=== PATIENT | female | born 1980 | race Caucasian/White ===

== ENCOUNTER → 2017-03-03 | Outpatient (CLI) | payer OTHER ==
[~2017-03-03] MED LIST: AMBIEN 10MG TAB10 MG PO; AMOXICILLIN AND1 TA1 PO; BACTRIM DS 8001 TA1 PO; BENZONATATE200 MG PO; CALCIUM CARBON600 MG PO; CEPHALEXIN500 MG PO; CIPRO 500MG TA500 MG PO; HYDROCODON-ACETAMINO OR; LEUPROLIDE IM; LISINOPRIL10 MG PO; LORAZEPAM0.5 MG/TAB FT; LOVASTATIN20 MG PO; NAPROSYN 500MG500 MG PO; NAPROSYN500 M1 PO; NORCO 325 MG-51 TAB PO; OPTIMUM VITAMIN1 TAB PO; PERCOCET 5/3251 EACH PO; PREDNISONE 20MG20 MG PO; PREDNISONE50 MG PO; PREMARIN 0.60.625 MG PO; PROZAC 20MG CAP20 MG PO; VITAMIN D1000 IU PO; XANAX 0.25MG0.25 MG PO
[2017-03-03 14:34] LABS: AMPHETAMINES/METAMPHETAMINES NEGATIVE ng/mL (<1000)
== END ==
LOC: LAB 13:45
PROVIDERS: Emergency Medicine
DX: Z79.899 Other long term (current) drug therapy (principal)

== ENCOUNTER → 2017-05-26 | Outpatient (CLI) | payer OTHER ==
[2017-05-26 14:13] LABS: AMPHETAMINES/METAMPHETAMINES NEGATIVE ng/mL (<1000)
[2017-06-01 16:40] LABS: Opiates Negative (Cutoff=100)
== END ==
LOC: LAB 11:31
PROVIDERS: Emergency Medicine
DX: Z79.899 Other long term (current) drug therapy (principal)

== ENCOUNTER → 2017-06-24 | Outpatient (CLI) | payer OTHER ==
[2017-06-24 19:58] LABS: AMPHETAMINES/METAMPHETAMINES NEGATIVE ng/mL (<1000)
== END ==
LOC: LAB 17:34
PROVIDERS: Emergency Medicine
DX: Z79.899 Other long term (current) drug therapy (principal)

== ENCOUNTER 2017-07-17 17:09 | Emergency (ER) | payer OTHER ==
[~2017-07-17] VITALS: Ht 154.9 cm; Wt 83.9 kg
[2017-07-17] MEDS ORDERED: MEDROL 4MG. DOSE4 MG PO (17:36)
[2017-07-17] MEDS ORDERED: TESSALON PERLE100 M1 PO (17:36)
[2017-07-17] MEDS ORDERED: ZITHROMAX Z PA250 MG PO (17:36)
[2017-07-17] MEDS ORDERED: FLONASE 50 MCG16 GM (17:36)
--- NOTE | 2017-07-17 17:36 | Urgent Treatment Center Report ---
History of Present Issue Date/Time Seen by Provider 07/17/17 1731 Visit Reason Pt arrived:Walked Presenting Problem:COUGH, BODY ACHES, SOA, WEAKNESS AND RUNNY NOSE X 3 DAYS Location if Accident: Onset of symptoms date/time:/ or onset unknown for:MEDICAL HX UNKNOWN Have you (or family members/close friends) recently traveled outside the [place]? N If Yes, where/when: Have you had exposure to infectious disease within the past month? TB? Other? Specify: Patient state that she has been having cough and body aches for 3 days. States that she began to have sorethroat and nasal congestion and runny nose. State that when she begans coughing she feels like she cant stop. States that she feels like her sinuses is draining down the back of her throat and causing her to feel bad ALLERGIES Coded Allergies: No Known Allergies (03/08/16) Home Medications Reported Medications Lovastatin 20 MG PO DAILY #30 Zolpidem Tartrate (Ambien 10MG) 20 MG PO QHS Conjugated Estrogens (Premarin 0.625MG) 0.625 MG PO DAILY Lisinopril 10 MG PO DAILY #30 History Medical History General CAD? No Angina: Yes NV: No Hypertension? Yes Hyperlipidemia? Yes CHF? No DVT? No PE? No COPD? No Asthma? Yes Anemia? No GERD? No Gastric ulcers? No GI Bleed? No Hernia? No Thyroid Problems? No Hypothyroidism? No CVA? No Seizures? No Diabetes? No Renal Insuffiency? No UTI? Yes Stones? No BPH? No GB Disease: No Nephritic Syndrome? No Asplenia? No Hepatitis? No Sickle Cell Disease? No Arthritis? No Migraines? No Cataracts? No Glaucoma? No MRSA? No HIV? No TB? No Anxiety? Yes Depression? No Cancer? No More? No Immunization HX DT/Tetanus 5-10 YRS Flu [id number] Pneumonia Received In Past Surgical Hx Previous Surgery?Y DX. 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 Respiratory cough, denies wheezing Physical Exam Vital Signs Vital Signs Date Time Temp Pulse Resp B/P Pulse O2 O2 Flow FiO2 Ox Delivery Rate 07/17 1724 98.3 116 22 145/90 96 General Appearance normal appearance, WD/WN, no apparent distress Ear, Nose, Throat throat red, irritated, drainage noted with tenderness noted over maxillary sinsues Respiratory Status Yes: trachea midline, chest symmetrical, non tender chest. No: respiratory distress. Lung Sounds bilateral: normal breath sounds, lungs clear. 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 No Departure Departure Time of Disposition 1733 Disposition DC Home or Self Care(routine) Clinical Impression Primary Impression: Upper respiratory infection Qualifiers: URI type: unspecified URI Qualified Code: J06.9 - Acute upper respiratory infection, unspecified Condition STABLE Referrals Katherine MANCUSO,Kory Car (Family) Patient Instructions Cough, Sinus Headache, Sinusitis, Sore Throat Additional Instructions * Monitor Temp. Tylenol and/or Ibuprofen as needed. ER if fever is no less than 101 despite alternating Tylenol and Ibuprofen * Encourage fluids, water, Gatorade, powerade, pedialyte if infant/toddler/or child * Warm salt water gargles for throat irritation *Warm fluids *Sore throat lozenges *Sleep elevated *humidifier or vaporizer *Flonase 2 sprays each nostril daily but may take 2-3 days to notice improvement with it Follow up IMMEDIATELY for new or worsening of symptoms OR no noticeable improvement over the next 48-72 hours. 911 immediately for any life threatening symptoms such as chest pain or difficulty breathing Discharge Counseling Counseled pt/family regarding diagnosis, medications/RX, home care, follow up needs Prescriptions Current Visit Scripts Azithromycin (Zithromycin (Z-MENDEZ) 250MG Tab) 250 MG PO DAILY #6 TAB TAKE TWO (2) TABLETS ON DAY 1, THEN ONE (1) TABLET DAY #2 THRU #5 Fluticasone Propionate (Flonase 50 Mcg Nasal [place]) 2 SPRAY NA DAILY #1 BOT Methylprednisolone (Medrol Dose Mendez) 4 MG PO UD #1 MENDEZ TAKE DIRECTED ON PACKAGING Benzonatate (Tessalon Perle) 100 MG PO TID #15 SGL at 7056
[2017-07-17 17:38] VITALS: BP 145/90
== END 2017-07-17 17:39 | disposition home or self-care (01) ==
LOC: UTC 17:09
DX: J06.9 Acute upper respiratory infection, unspecified (principal); J45.909 Unspecified asthma, uncomplicated; I10 Essential (primary) hypertension; F41.9 Anxiety disorder, unspecified

== ENCOUNTER → 2017-07-24 | Outpatient (CLI) | payer OTHER ==
[~2017-07-24] MED LIST changes: +FLONASE 50 MCG16 GM; +MEDROL 4MG. DOSE4 MG PO; +TESSALON PERLE100 M1 PO; +ZITHROMAX Z PA250 MG PO
[2017-07-24 18:24] LABS: AMPHETAMINES/METAMPHETAMINES NEGATIVE ng/mL (<1000)
[2017-08-03 12:37] LABS: Opiates Negative (Cutoff=100)
== END ==
LOC: LAB 16:44
PROVIDERS: Emergency Medicine
DX: Z79.899 Other long term (current) drug therapy (principal)

== ENCOUNTER 2017-09-13 15:12 | Emergency (ER) | payer OTHER ==
[~2017-09-13] VITALS: Ht 154.9 cm; Wt 97.5 kg
--- NOTE | 2017-09-13 15:15 | Emergency Room Report ---
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 Clinical Suspician of Infection? Mental Status: Sepsis Risk: Have you (or family members/close friends) recently traveled outside the [place]? If Yes, where/when: Have you had exposure to infectious disease within the past month? TB? Other? Specify: Source patient, RN notes reviewed Exam Limitations no limitations Comment Pt woke up around 3 AM this morning with nausea and vomiting but no diarrhea. ? some fever and Left shest pain with deep breathing. Cardiac Chest Pain Chest pain indicative of cardiac No ALLERGIES Coded Allergies: No Known Allergies (03/08/16) Home Medications Reported Medications Lovastatin 20 MG PO DAILY #30 Zolpidem Tartrate (Ambien 10MG) 20 MG PO QHS Conjugated Estrogens (Premarin 0.625MG) 0.625 MG PO DAILY Lisinopril 10 MG PO DAILY #30 Bupropion HCl (WELLBUTRIN SR 150MG (generic) TAB) 150 MG PO DAILY History Medical History General CAD? No Angina: Yes [place]: No Hypertension? Yes Hyperlipidemia? Yes CHF? No DVT? No PE? No COPD? No Asthma? Yes Anemia? No GERD? No Gastric ulcers? No GI Bleed? No Hernia? No Thyroid Problems? No Hypothyroidism? No CVA? No Seizures? No Diabetes? No Renal Insuffiency? No End Stage Renal Disease? No UTI? Yes Stones? No BPH? No GB Disease: No Nephritic Syndrome? No Asplenia? No Hepatitis? No Sickle Cell Disease? No Arthritis? No Migraines? No Cataracts? No Glaucoma? No MRSA? No HIV? No TB? No Anxiety? Yes Depression? No Cancer? No More? No Immunization Hx DT/Tetanus 5-10 YRS Flu [id number] Pneumonia Received In Past Surgical Hx Previous Surgery?Y DX. 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 VAG HYST Family History Family Hx Diabetes No CAD No Hypertension No Hyperlipidemia No Cancer No TB No Social History Alcohol Alcohol: No Review of Systems All Other Systems Reviewed and Negative Constitutional see HPI Respiratory see HPI Cardiovascular see HPI Gastrointestinal see HPI Physical Exam Vital Signs Vital Signs Date Time Temp Pulse Resp B/P Pulse O2 O2 Flow FiO2 Ox Delivery Rate 09/13 1827 96 20 113/55 97 09/13 1651 20 09/13 1641 99.1 96 20 118/68 98 09/13 1516 98.1 124 22 125/88 98 General Appearance normal appearance, WD/WN, no apparent distress Respiratory Status No: respiratory distress. 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 No Results/Orders Laboratory Tests 09/13/17 1640: Influenza Type A Ag NOT DETECTED, Influenza Type B Ag NOT DETECTED 09/13/17 1530: Sodium 139, Potassium 3.9, Chloride 103, Carbon Dioxide 26, BUN 13, Creatinine 0.8, Estimated Creat Clear 145, Estimated GFR (MDRD) 80, Glucose 109 H, Calcium 9.2, Total Bilirubin 0.4, AST 18, ALT 18, Alkaline Phosphatase 86, Creatine Kinase 77, CK-MB (CK-2) Rel Index 0.6, CK and CKMB Interp < 0.5, Troponin I < 0.02, Total Protein 7.6, Albumin 3.8, Globulin 3.8 H, Albumin/Globulin Ratio 1.0 L, D-Dimer < 100, WBC 8.2, RBC 4.47, Hgb 12.7, Hct 38.0, MCV 84.9, RDW 13.8 , Plt Count 340, MPV 6.8 L, Gran % 82.1 H, Gran # 6.7, Lymphocytes % 9.5 L, Monocytes % 3.2, Eosinophils % 4.9, Basophils % 0.2, Lymphocytes # 0.8, Monocytes # 0.3, Eosinophils # 0.4, Basophils # 0.0, PUBS MCHC 33.5, MCH 28.4 Current Medication Orders Sig/Fatou Start time Last Medication Dose Route Stop Time Status Admin Prochlorperazine 0 .STK-MED ONE 09/13 1647 DC Edisylate .ROUTE Sodium Chloride 1,000 ML .STK-MED ONE 09/13 1647 DC IV Morphine Sulfate 0 .STK-MED ONE 09/13 1646 DC .ROUTE Morphine Sulfate 4 MG ONCE ONE 09/13 1645 DC 09/13 IV 09/13 1646 1651 Prochlorperazine 5 MG ONCE ONE 09/13 1645 DC 09/13 Edisylate IV 09/13 1646 1651 Sodium Chloride 1,000 ML .Q1H1M 09/13 1645 DC 09/13 IV 09/13 1745 1651 Sodium Chloride 10 ML PRN PRN 09/13 1645 AC IV 09/14 1634 Promethazine HCl 12.5 MG ONCE ONE 09/13 1615 DC 09/13 IV 09/13 1616 1610 Sodium Chloride 25 ML ONCE ONE 09/13 1615 DC 09/13 IV 09/13 1629 1610 Promethazine HCl 0 .STK-MED ONE 09/13 1607 DC .ROUTE Sodium Chloride 25 ML .STK-MED ONE 09/13 1606 DC IV Ondansetron HCl 4 MG ONCE ONE 09/13 1545 DC 09/13 IV 09/13 1546 1546 Sodium Chloride 1,000 ML .Q1H1M 09/13 1545 DC 09/13 IV 09/13 1645 1546 Sodium Chloride 10 ML PRN PRN 09/13 1545 AC IV 09/14 1543 Ondansetron HCl 0 .STK-MED ONE 09/13 1530 DC .ROUTE Sodium Chloride 10 ML PRN PRN 09/13 1530 AC IV 09/14 1528 Sodium Chloride 1,000 ML .STK-MED ONE 09/13 1530 DC IV Orders Procedure Date/time Status D-DIMER 09/13 1850 Complete CULTURE, THROAT 09/13 1640 Active KUB (SINGLE VIEW) 09/13 1635 Active STREP SCREEN THROAT 09/13 1635 Complete INFLUENZA A&B ANTIGENS 09/13 1635 Complete 12 LEAD EKG-BESSON (INITIAL) 09/13 1529 Active ELECTROCARDIOGRAM REQUEST 09/13 1529 Active CHEST(2 VIEWS-NOT PORTABLE) 09/13 1529 Active IV SALINE LOCK 09/13 1529 Active URINALYSIS/COMPLETE 09/13 1529 Active CBC WITH AUTO DIFF 09/13 1529 Complete CARDIAC ENZYMES 09/13 1529 Complete CHEM 12 PROFILE 09/13 1529 Complete Departure Departure Time of Disposition 1952 Disposition DC Home or Self Care(routine) Clinical Impression Primary Impression: Viral gastroenteritis Condition STABLE Patient Instructions DI for Viral Gastroenteritis -- Adult, Viral Gastroenteritis Additional Instructions Stay on clear liquids for the next 24 to 48 hours. Then go to a BRATS diet: Fprwt-Eleo-Notbrdpyva-Soups. Use meds as directed. Discharge Counseling Counseled pt/family regarding diagnosis, test results, medications/RX, home care, follow up needs Prescriptions Current Visit Scripts ONDANSETRON HCL (Zofran 4MG Tab) 4 MG PO Q6HP PRN NAUSEA AND VOMITING #40 TAB Loperamide HCl (Imodium A-D) 2 MG PO DIRECTED #30 CAPSULE Take 2 tabs with first loose BM and then 1 tab after each BM but no more than 6 pills in 1 day ED Critical Care Critical Care No If Critical Care minutes are documented, the time involved in the performance of seperately reportable procedures was not counted toward critical care time documented. I directly delivered medical care to this critically ill and/or injured patient. Timely evaluation and treatment was necessary to address the significant organ system(s) dysfunction present in this patient. at 1957
[2017-09-13] MEDS ORDERED: WELLBUTRIN SR150 MG PO (15:27)
--- OUTSIDE RECORDS SUMMARY | 2017-09-13 15:40 | External Medical Summary Rpt | CCD ---
Author Author [employer] Organization [employer] Address Unknown Phone Unavailable Purpose Continuity of Care Document - through 2016
--- OUTSIDE RECORDS SUMMARY | 2017-09-13 15:40 | External Medical Summary Rpt | CCD ---
Author Author , GRACE EDWARDS Address Unknown Phone [email or web address] Immunization Name Date Rout CVX Reac Dose Comm Prov Is Faci e tion ent ider Refu lity Give sed n Infl 10-0 Intr 150 0.5 Hist GSHA No GSHA uenz 6-20 amus mL oric NE NE a 17 cula al Quad r Info Inj rmat ion - Sour ce Unsp ecif ied
--- OUTSIDE RECORDS SUMMARY | 2017-09-13 15:40 | External Medical Summary Rpt | CCD ---
Author Author , GRACE Organization GRACE Address Unknown Phone [email or web address] Care Team Providers Care Mailing Specialist Name Role Phone Gurvinder Murphy MD, Unavailable Unavailable Gurvinder Rodas Unavailable DANIELA MANCUSO, Ryan Rice III, MD Purpose Continuity of Care Document - 01-17-2012 through 2016 Problems Code Diagnosis DOS Provider Status 466.0 466.0 ACUTE 12-01-2013 [facility] 511.0 511.0 12-01-2013 [place] PLEURISY [facility] W/O [facility] OR TB 493.92 493.92 03-14-2013 [place] ASTHMA, [facility]PEC[facility]IED [facility] , W (ACUTE) EXACERBATIO N M77.50 OTHER ENTHESOPATH Y OF UNSPECIFIED FOOT M79.673 PAIN IN UNSPECIFIED FOOT R00.2 PALPITATION S S83.91XA SPRAIN OF UNSPECIFIED SITE OF RIGHT KNEE, INITIAL ENCOUNTER S93.401A SPRAIN OF UNSPECIFIED LIGAMENT OF RIGHT ANKLE, INIT ENCNTR S93.409A SPRAIN OF UNSP LIGAMENT OF UNSPECIFIED ANKLE, INIT ENCNTR S93.601A UNSPECIFIED SPRAIN OF RIGHT FOOT, INITIAL ENCOUNTER Allergies, Adverse Reactions, Alerts Type Drug Allergy Propensity to adverse reactions to drug Adverse Reaction to Substance Substance Reaction Severity No Known Allergies - Unknown Unknown Nka Ibuprofen NA-NAUSEA/VOMITING Unknown Pentazocine NA-NAUSEA/VOMITING Mild Tramadol NA-NAUSEA/VOMITING Mild Medications Na ND Rx Da Fi Fi Am Da Di Ph RX Ph St me C No te ll ll ou ys ag ar # ys at rm s nt no ma ic us Or Da si cy ia de te s n re d Le 00 02 0 No vo 90 -1 fl 46 3- Lo ox 25 20 ng ac 06 14 er in 1 Ac 50 ti 0M ve G Ta bl et IN 51 02 0 No DO 07 -1 ME 90 3- Lo TH 19 20 ng AC 02 14 er IN 0 Ac 25 ti ve MG CA PS UL E AC 51 02 0 No ET 07 -1 AM 90 3- Lo IN 16 20 ng OP 19 14 er HE 9H N Ac W/ ti CO ve DE IN E #3 TA K Le 00 02 0 No vo 90 -1 fl 46 3- Lo ox 25 20 ng ac 06 14 er in 1 Ac 50 ti 0M ve G Ta bl et AC 51 02 0 No ET 07 -1 AM 90 3- Lo IN 16 20 ng OP 19 14 er HE 9H N Ac W/ ti CO ve DE IN E #3 TA K AM 66 05 0 No OX 68 -2 -C 51 7- Lo LA 00 20 ng V 20 13 er 50 0 0- Ac 12 ti 5 ve MG TA BL ET OK 00 05 0 No ED 05 -2 NI 40 7- Lo SO 01 20 ng NE 82 13 er 0 20 Ac ti MG ve TA BL ET BE 57 05 0 No NZ 66 -2 ON 40 7- Lo AT 13 20 ng AT 38 13 er E 8 10 Ac 0 ti MG ve CA PS UL E Vital Signs 12-01-2013 22:21 Name Value Interpretat Reference Comment ion Range BP 70 mm[Hg] Diastolic BP Systolic 119 mm[Hg] Heart 97 /min Rate/Pulse O2% 98 % Respiratory 20 /min Rate 12-01-2013 21:53 Name Value Interpretat Reference Comment ion Range Body 97.9 [degF] Temperature BP 65 mm[Hg] Diastolic BP Systolic 104 mm[Hg] Heart 101 /min Rate/Pulse O2% 98 % Respiratory 24 /min Rate 03-14-2013 03:10 Name Value Interpretat Reference Comment ion Range BP 87 mm[Hg] Diastolic BP Systolic 124 mm[Hg] Heart 103 /min Rate/Pulse O2% 97 % Respiratory 20 /min Rate 03-14-2013 02:57 Name Value Interpretat Reference Comment ion Range BP 73 mm[Hg] Diastolic BP Systolic 116 mm[Hg] Heart 104 /min Rate/Pulse O2% 98 % Respiratory 20 /min Rate Results Labs Lab Lab Date Result Refere Interp Status Commen Order Detail nces retati t Range on Opiates and Oxycodone(GC/MS),U (07-24-2017 15:15) Opiates Negativ Cutoff= complet 017 e 100 ed 15:15 Comment: Opiate test includes Codeine, Morphine, Hydromorphone, Hydrocodone. Oxymorp --2 Negativ Cutoff= complet mikey 017 e 100 ed 15:15 Comment: Performed at: - [facility] Comment: [address] [facility], [facility], [place] [id number] Comment: Research Anthropologist: Kory Peterson MD, Phone: [phone] Oxycodo 102 2089 Cutoff= complet ne 017 ng/mL 100 ed (GC/MS) 15:15 Oxycodo 10-06-2 Positiv . complet ne 017 e ed 15:15 Oxycodo 10-06-2 Positiv . complet ne/Oxym 017 e ed orph 15:15 Comment: Test includes Oxycodone and Oxymorphone Drugs identified in Urine by Screen method (07-24-2017 15:15) Ampheta 10--2 NEGATIV <1000 complet mine 017 E ed [Presen 15:15 ce] in Urine by Screen method 11-Hydr 2 NEGATIV <50 complet oxy 017 E ed delta-9 15:15 tetrahy drocann abinol [Presen ce] in Unspeci fied specime n Drugs identified in Urine by Screen method (06-24-2017 14:45) Ampheta -06-2 NEGATIV <1000 complet mine 017 E ed [Presen 14:45 ce] in Urine by Screen method 11-Hydr 2 NEGATIV <50 complet oxy 017 E ed delta-9 14:45 tetrahy drocann abinol [Presen ce] in Unspeci fied specime n Drugs identified in Urine by Screen method (05-26-2017 09:45) Ampheta 08-08-2 NEGATIV <1000 complet mine 017 E ed [Presen 09:45 ce] in Urine by Screen method 11-Hydr 05-26-2 NEGATIV <50 complet oxy 017 E ed delta-9 09:45 tetrahy drocann abinol [Presen ce] in Unspeci fied specime n Drugs identified in Urine by Screen method (04-27-2017 09:20) Ampheta 07--2 NEGATIV <1000 complet mine 017 E ed [Presen 09:20 ce] in Urine by Screen method 11-Hydr NEGATIV <50 complet oxy 017 E ed delta-9 09:20 tetrahy drocann abinol [Presen ce] in Unspeci fied specime n Drugs identified in Urine by Screen method (03-30-2017 09:40) Ampheta NEGATIV <1000 complet mine 017 E ed [Presen 09:40 ce] in Urine by Screen method Hydr NEGATIV <50 complet oxy 017 E ed delta-9 09:40 tetrahy drocann abinol [Presen ce] in Unspeci fied specime n Drugs identified in Urine by Screen method (03-03-2017 11:00) Ampheta NEGATIV <1000 complet mine 017 E ed [Presen 11:00 ce] in Urine by Screen method Hydr NEGATIV <50 complet oxy 017 E ed delta-9 11:00 tetrahy drocann abinol [Presen ce] in Unspeci fied specime n THYROID STIMULATING HORMONE (04-11-2013 14:55) Comment: PLEASE FAX [phone] THYROID 1.18 0.46-4. Normal complet 013 uIU/mL 68 ed STIMULA 14:55 TING HORMONE Encounters Encounter Start End Date Code Location Performer Type Date Emergency ZAHEER Murphy MD (ER) 4 21:30 4 22:22 [facility] Emergency ZAHEER Rice (ER) 3 02:17 3 03:13 [facility] Ryan Castro
--- OUTSIDE RECORDS SUMMARY | 2017-09-13 15:40 | External Medical Summary Rpt ---
Author Author BARBARALIANNE Clarke, [employer] Organization [employer] Address Unknown Phone Unavailable Results Opiates and Oxycodone(GC/MS),U Observa Value Referen Units Interpr Notes Date tion ce etation Range Oxycodo Positiv . No Abnorma Test Jul 24 ne/Oxym e informa l include 2017 orph tion in s 3:15 PM source Oxycodo data ne and Oxymorp mikey Oxycodo Positiv . No Abnorma No Jul 24 ne e informa l informa 2017 tion in tion in 3:15 PM source source data data Oxycodo 2089 Cutoff= ng/mL No No Jul 24 ne 100 informa informa 2017 (GC/MS) tion in tion in 3:15 PM source source data data Oxymorp Negativ Cutoff= No No Perform Jul 24 mikey e 100 informa informa ed at: 2017 tion in tion in UI - 3:15 PM source source [facility] data data [facility] [id number] [place], [place] [id number] 53Lab Directo r: Kory Peterson MD, Phone: [phone] Opiates Negativ Cutoff= No No Opiate Jul 24 e 100 informa informa test 2016 tion in tion in include 3:15 PM source source s data data Codeine , Morphin e, Hydromo rphone, Hydroco done. Drugs identified in Urine by Screen method Observa Value Referen Units Interpr Notes Date tion ce etation Range Positive urine drug screen samples are stored for 7 days. Contact the Lab if confirmation of positives is needed. Ampheta NEGATIV <1000 ng/mL No No Jul 24 mine E informa informa 2017 [Presen tion in tion in 3:15 PM ce] in source source Urine data data by Screen method Barbitura <200 ng/mL No No Jul 6 sara informati informati 2017 3:15 [Mass/vol on in on in PM ume] in source source Urine by data data Screen method Benzodiaz 200 ng/mL ng/mL No No Oct 6 epines informati informati 2017 3:15 [Mass/vol on in on in PM ume] in source source Serum or data data Plasma by Screen method Cocaine <300 ng/g No No Oct 6 [Mass/vol informati informati 2016 3:15 ume] in on in on in PM Unspecifi source source ed data data specimen Methadone <300 ng/mL No No Jul 24 informati informati 2016 3:15 [Mass/vol on in on in PM ume] in source source Unspecifi data data ed specimen Opiates <300 ng/mL No No Oct 6 [Mass/vol informati informati 2016 3:15 ume] in on in on in PM Unspecifi source source ed data data specimen Phencycli <25 ng/mL No No Jul 6 dine informati informati 2016 3:15 [Mass/vol on in on in PM ume] in source source Unspecifi data data ed specimen 11-Hydr NEGATIV <50 ng/mL No No Jul 24 oxy E informa informa 2017 delta-9 tion in tion in 3:15 PM source source tetrahy data data drocann abinol [Presen ce] in Unspeci fied specime n Drugs identified in Urine by Screen method Observa Value Referen Units Interpr Notes Date tion ce etation Range Positive urine drug screen samples are stored for 7 days. Contact the Lab if confirmation of positives is needed. Ampheta NEGATIV <1000 ng/mL No No Sep 6 mine E informa informa 2017 [Presen tion in tion in 2:45 PM ce] in source source Urine data data by Screen method Barbitura <200 ng/mL No No Sep 6 sara informati informati 2017 2:45 [Mass/vol on in on in PM ume] in source source Urine by data data Screen method Benzodiaz 200 ng/mL ng/mL No No Sep 6 epines informati informati 2017 2:45 [Mass/vol on in on in PM ume] in source source Serum or data data Plasma by Screen method Cocaine <300 ng/g No No Sep 6 [Mass/vol informati informati 2017 2:45 ume] in on in on in PM Unspecifi source source ed data data specimen Methadone <300 ng/mL No No Sep 6 informati informati 2017 2:45 [Mass/vol on in on in PM ume] in source source Unspecifi data data ed specimen Opiates <300 ng/mL High This is Sep 6 [Mass/vol an 2017 2:45 ume] in UNCONFIRM PM Unspecifi ED ed result. specimen This result is for medicalpu rposes and/or treatment only. Phencycli <25 ng/mL No No Sep 6 dine informati informati 2017 2:45 [Mass/vol on in on in PM ume] in source source Unspecifi data data ed specimen 11-Hydr NEGATIV <50 ng/mL No No Sep 6 oxy E informa informa 2017 delta-9 tion in tion in 2:45 PM source source tetrahy data data drocann abinol [Presen ce] in Unspeci fied specime n Opiates and Oxycodone(GC/MS),U Observa Value Referen Units Interpr Notes Date tion ce etation Range Oxycodo Positiv . No Abnorma Test May 26 ne/Oxym e informa l include 2017 orph tion in s 9:45 AM source Oxycodo data ne and Oxymorp mikey Oxycodo Positiv . No Abnorma No May 26 ne e informa l informa 2017 tion in tion in 9:45 AM source source data data Oxycodo 238 Cutoff= ng/mL No No May 26 ne 100 informa informa 2017 (GC/MS) tion in tion in 9:45 AM source source data data Oxymorp Positiv . No Abnorma No May 26 mikey e informa l informa 2017 tion in tion in 9:45 AM source source data data Oxymorp 184 Cutoff= ng/mL No Perform May 26 mikey 100 informa ed at: 2017 (GC/MS) tion in UI - 9:45 AM source [facility] data [address] [id number] [facility], [place], [place] [id number]Lab Directo r: Kory Peterson MD, Phone: [phone] Opiates Negativ Cutoff= No No Opiate May 26 e 100 informa informa test 2017 tion in tion in include 9:45 AM source source s data data Codeine , Morphin e, Hydromo rphone, Hydroco done. Drugs identified in Urine by Screen method Observa Value Referen Units Interpr Notes Date tion ce etation Range Positive urine drug screen samples are stored for 7 days. Contact the Lab if confirmation of positives is needed. Ampheta NEGATIV <1000 ng/mL No No May 26 mine E informa informa 2017 [Presen tion in tion in 9:45 AM ce] in source source Urine data data by Screen method Barbitura <200 ng/mL No No May 26 sara informati informati 2016 9:45 [Mass/vol on in on in AM ume] in source source Urine by data data Screen method Benzodiaz 200 ng/mL ng/mL No No May 26 epines informati informati 2016 9:45 [Mass/vol on in on in AM ume] in source source Serum or data data Plasma by Screen method Cocaine <300 ng/g No No May 26 [Mass/vol informati informati 2016 9:45 ume] in on in on in AM Unspecifi source source ed data data specimen Methadone <300 ng/mL No No May 26 informati informati 2016 9:45 [Mass/vol on in on in AM ume] in source source Unspecifi data data ed specimen Opiates <300 ng/mL No No May 26 [Mass/vol informati informati 2016 9:45 ume] in on in on in AM Unspecifi source source ed data data specimen Phencycli <25 ng/mL No No May 26 dine informati informati 2016 9:45 [Mass/vol on in on in AM ume] in source source Unspecifi data data ed specimen 11-Hydr NEGATIV <50 ng/mL No No May 26 oxy E informa informa 2017 delta-9 tion in tion in 9:45 AM source source tetrahy data data drocann abinol [Presen ce] in Unspeci fied specime n Drugs identified in Urine by Screen method Observa Value Referen Units Interpr Notes Date tion ce etation Range Positive urine drug screen samples are stored for 7 days. Contact the Lab if confirmation of positives is needed. Ampheta NEGATIV <1000 ng/mL No No Apr 27 mine E informa informa 2016 [Presen tion in tion in 9:20 AM ce] in source source Urine data data by Screen method Barbitura <200 ng/mL No No Apr 27 sara informati informati 2017 9:20 [Mass/vol on in on in AM ume] in source source Urine by data data Screen method Benzodiaz 200 ng/mL ng/mL No No Apr 27 epines informati informati 2016 9:20 [Mass/vol on in on in AM ume] in source source Serum or data data Plasma by Screen method Cocaine <300 ng/g No No Apr 27 [Mass/vol informati informati 2016 9:20 ume] in on in on in AM Unspecifi source source ed data data specimen Methadone <300 ng/mL No No Apr 27 informati informati 2016 9:20 [Mass/vol on in on in AM ume] in source source Unspecifi data data ed specimen Opiates <300 ng/mL High This is Apr 27 [Mass/vol an 2017 9:20 ume] in UNCONFIRM AM Unspecifi ED ed result. specimen This result is for medicalpu rposes and/or treatment only. Phencycli <25 ng/mL No No Apr 27 dine informati informati 2016 9:20 [Mass/vol on in on in AM ume] in source source Unspecifi data data ed specimen 11-Hydr NEGATIV <50 ng/mL No No Apr 27 oxy E informa informa 2017 delta-9 tion in tion in 9:20 AM source source tetrahy data data drocann abinol [Presen ce] in Unspeci fied specime n Drugs identified in Urine by Screen method Observa Value Referen Units Interpr Notes Date tion ce etation Range Positive urine drug screen samples are stored for 7 days. Contact the Lab if confirmation of positives is needed. Ampheta NEGATIV <1000 ng/mL No No Mar 30 mine E informa informa 2017 [Presen tion in tion in 9:40 AM ce] in source source Urine data data by Screen method Barbitura <200 ng/mL No No Mar 30 sara informati informati 2016 9:40 [Mass/vol on in on in AM ume] in source source Urine by data data Screen method Benzodiaz 200 ng/mL ng/mL No No Mar 30 epines informati informati 2017 9:40 [Mass/vol on in on in AM ume] in source source Serum or data data Plasma by Screen method Cocaine <300 ng/g No No Mar 30 [Mass/vol informati informati 2016 9:40 ume] in on in on in AM Unspecifi source source ed data data specimen Methadone <300 ng/mL No No Mar 30 informati informati 2016 9:40 [Mass/vol on in on in AM ume] in source source Unspecifi data data ed specimen Opiates <300 ng/mL High This is Mar 30 [Mass/vol an 2016 9:40 ume] in UNCONFIRM AM Unspecifi ED ed result. specimen This result is for medicalpu rposes and/or treatment only. Phencycli <25 ng/mL No No Mar 30 dine informati informati 2016 9:40 [Mass/vol on in on in AM ume] in source source Unspecifi data data ed specimen 11-Hydr NEGATIV <50 ng/mL No No Mar 30 oxy E informa informa 2017 delta-9 tion in tion in 9:40 AM source source tetrahy data data drocann abinol [Presen ce] in Unspeci fied specime n Drugs identified in Urine by Screen method Observa Value Referen Units Interpr Notes Date tion ce etation Range Positive urine drug screen samples are stored for 7 days. Contact the Lab if confirmation of positives is needed. Ampheta NEGATIV <1000 ng/mL No No March 03 mine E informa informa 2017 [Presen tion in tion in 11:00 ce] in source source AM Urine data data by Screen method Barbitura <200 ng/mL No No March 03 sara informati informati 2016 [Mass/vol on in on in 11:00 AM ume] in source source Urine by data data Screen method Benzodiaz 200 ng/mL ng/mL No No March 03 epines informati informati 2017 [Mass/vol on in on in 11:00 AM ume] in source source Serum or data data Plasma by Screen method Cocaine <300 ng/g No No March 03 [Mass/vol informati informati 2017 ume] in on in on in 11:00 AM Unspecifi source source ed data data specimen Methadone <300 ng/mL No No March 03 informati informati 2017 [Mass/vol on in on in 11:00 AM ume] in source source Unspecifi data data ed specimen Opiates <300 ng/mL High This is March 03 [Mass/vol an 2016 ume] in UNCONFIRM 11:00 AM Unspecifi ED ed result. specimen This result is for medicalpu rposes and/or treatment only. Phencycli <25 ng/mL No No March 03 dine informati informati 2016 [Mass/vol on in on in 11:00 AM ume] in source source Unspecifi data data ed specimen 11-Hydr NEGATIV <50 ng/mL No No March 03 oxy E informa informa 2017 delta-9 tion in tion in 11:00 source source AM tetrahy data data drocann abinol [Presen ce] in Unspeci fied specime n THYROID STIMULATING HORMONE Observa Value Referen Units Interpr Notes Date tion ce etation Range PLEASE FAX [phone] THYROID 1.18 0.46 - uIU/mL Normal No Mar 24 4.68 informa 2013 STIMULA tion in 5:49 PM TING source HORMONE data XR ANKLE COMP MIN 3 VIEWS Observa Value Referen Units Interpr Notes Date tion ce etation Range Report Ankle - No No No No Jan 16 informa informa informa informa 2012 Multipl tion in tion in tion in tion in 8:20 PM e source source source source ViewsMu data data data data ltiple views of the ankle show no fractur e or disloca tion. There isno radiopa que foreign body. No signifi cant arthrit ic change can beseen. IMPRESS ION-Nor mal views of the ankle.Stacy last Radiolo ernesto- TABATHA Diallo easing Radiolo gist- TABATHA Diallo eased Date Time- 2 0927Tra nscript ionist- TABATHA MACARIO--- ------- ------- ------- ------- ------- ------- ------- ------- ------- ------- -----
--- OUTSIDE RECORDS SUMMARY | 2017-09-13 15:40 | External Medical Summary Rpt ---
[...] 3:15 PM source source [facility] data data [facility] [id number] [place], [place] [id number] 53Lab Directo r: Kory Peterson MD, Phone: [phone] Opiates Negativ Cutoff= No No Opiate Jul [...] - 9:45 AM source [facility] data [id number] [facility], [place], [place] [id number]Lab Directo r: Kory Peterson MD, Phone: [phone] Opiates Negativ Cutoff= No No Opiate May [...] Barbitura <200 ng/mL No No May 26 asra informati informati 2016 9:45 [Mass/vol on in [...] Date tion ce etation Range PLEASE FAX [phone] THYROID 1.18 0.46 - uIU/mL Normal No [...]
--- OUTSIDE RECORDS SUMMARY | 2017-09-13 15:40 | External Medical Summary Rpt | CCD ---
Author Author , [facility] [employer] [facility] Address Unknown Phone [email or web address] [email or web address] Care Assurance Specialist Name Role Phone Gurvinder Murphy MD, Unavailable Unavailable Gurvinder Rodas Unavailable DANIELA MANCUSO, Ryan Rice III, MD Purpose Continuity of Care Document - 01-17-2012 through 2016 Problems Code Diagnosis DOS Provider Status 466.0 466.0 ACUTE 12-01-2013 [facility] 511.0 511.0 12-01-2013 [place] PLEURISY [facility] W/O [facility] OR TB 493.92 493.92 03-14-2013 [place] ASTHMA, [facility] UNSPECIFIED Hospital , W (ACUTE) EXACERBATIO [...] ti 5 ve MG TA BL ET OR 00 05 0 No ED 05 -2 [...] ed 15:15 Comment: Performed at: - [facility] Comment: [address] [facility], [facility], [place] [id number] Comment: Director Product: Koyr Peterson MD, Phone: [phone] Oxycodo 102 2089 Cutoff= complet ne 017 [...] STIMULATING HORMONE (04-11-2013 14:55) Comment: PLEASE FAX [phone] THYROID 1.18 0.46-4. Normal complet 013 uIU/mL 68 ed STIMULA 14:55 TING HORMONE Encounters Encounter Start End Date Code Location Performer Type Date Emergency ZAHEER Murphy MD (ER) 4 21:30 4 22:22 [facility] Emergency ZAHEER Rice (ER) 3 02:17 3 03:13 [facility] Ryan Castro
--- OUTSIDE RECORDS SUMMARY | 2017-09-13 15:40 | External Medical Summary Rpt | CCD ---
Author Author , [facility] Address Unknown Phone [email or web address] [facility] Immunization Name Date Rout CVX Reac Dose Comm Prov Is Faci e tion ent ider Refu lity Give sed n Infl 10-0 Intr 150 0.5 Hist GSHA No GSHA uenz 6-20 amus mL oric NE NE a 17 cula al Quad r Info Inj rmat ion - Sour ce Unsp ecif ied
[2017-09-13 15:44] LABS: HEMOGLOBIN 12.7 g/dL (12.2-16.2); LYMPH # 0.8 K/mm3 (0.7-4.5); LYMPH % 9.5 % (10-50.0)
[2017-09-13 16:11] LABS: BUN 13 mg/dL (7-18)
[2017-09-13 16:15] LABS: GFR (ESTIMATED) 80 ML/MIN (59-)
[2017-09-13 17:48] LABS: STREP SCREEN (RAPID) NEGATIVE
[2017-09-13] MEDS ORDERED: ZOFRAN4 MG PO (19:55)
[2017-09-13] MEDS ORDERED: IMODIUM A-D2 M3 PO (19:55)
[2017-09-13 20:06] VITALS: BP 99/49
--- NOTE | 2017-09-13 21:35 | RADIOLOGY REPORT PS360 ---
CHEST(2 VIEWS-NOT PORTABLE) Ordering physician: Stacey Erwin MD Age: 37 years Female INDICATION: chest symptomsL SIDED BREAST PAIN, FEELING SOA PROCEDURE: CHEST(2 VIEWS-NOT PORTABLE) COMPARISON Multiple previous chest films as well as a CT chest August 10, 2012. Also Plain films 2 chest September 2015, January 2014. FINDINGS: Lungs well expanded and clear with nothing definitely acute. No focal pneumonia No pneumothorax. No pleural effusion. Heart normal size. Normal pulmonary vascularity. Hilar and mediastinal structures appear satisfactory. Chest wall unremarkable.. On the lateral view there is a small area of nodularity at the anterior chest but I believe this is likely stable in 2012 and 2014 chest film. In fact this was seen on a CT chest from 2011, just anterior to the pulmonary artery. Is lack of significant global director air and climate change this over 5 year. Support tubes and or benign nature. Can be followed. IMPRESSION Nothing definitely acute . Stable small nodular density at the anterior DIANELYS. No significant changes 2012 CT chest
--- NOTE | 2017-09-13 21:35 | RADIOLOGY REPORT PS360 ---
CHEST(2 VIEWS-NOT PORTABLE) Ordering physician: Stacey Erwin MD Age: 37 years Female INDICATION: chest symptomsL SIDED BREAST PAIN, FEELING SOA PROCEDURE: CHEST(2 VIEWS-NOT PORTABLE) COMPARISON Multiple previous chest films as well as a CT chest August 10, 2012. Also Plain films 2 chest September 2015, January 2014. FINDINGS: Lungs well expanded and clear with nothing definitely acute. No focal pneumonia No pneumothorax. No pleural effusion. Heart normal size. Normal pulmonary vascularity. Hilar and mediastinal structures appear satisfactory. Chest wall unremarkable.. On the lateral view there is a small area of nodularity at the anterior chest but I believe this is likely stable in 2012 and 2014 chest film. In fact this was seen on a CT chest from 2011, just anterior to the pulmonary artery. Is lack of significant change room attendant this over 5 year. Support tubes and or benign nature. Can be followed. IMPRESSION Nothing definitely acute . Stable small nodular density at the anterior DIANELYS. No significant changes 2012 CT chest
--- NOTE | 2017-09-13 22:27 | RADIOLOGY REPORT PS360 ---
KUB (SINGLE VIEW) Ordering Physician: Stacey Erwin MD Patient Age: 37 years: Female HISTORY: vomiting abdominal pain TECHNIQUE: Supine abdomen-KUB radiograph COMPARISON previous CT abdomen July 2012. FINDINGS Nonspecific bowel gas pattern. No bowel dilatation or obstruction. Minimal small bowel gas left upper quadrant. Minimal stool most evident sigmoid and descending colon. No organomegaly. Lung bases clear.Postsurgical changes in the pelvis from previous hysterectomy. Question some faint small round calcifications projected over the left kidney,-the largest measuring 4 mm size towards upper pole just to the left of L2 transverse process. Another questionable 3.5 mm calculus at seen at midportion left kidney.. If hematuria this may warrant further evaluation with CT abdomen Difficult to exclude a small faint calcification medial aspect of right kidney is less than 4 mm size. There are numerous phleboliths at the pelvic basin. These are not of concern. IMPRESSION: --------- Nonspecific gas pattern..No bowel dilatation or obstruction . Minimal stool sigmoid & left colon. Question some small scattered less than 4 mm calculi left kidney. But could merely be densities overlying stool.. May warrants correlation with urinalysis . Previous hysterectomy noted
== END 2017-09-13 20:15 | disposition home or self-care (01) ==
LOC: ER 15:12
PROVIDERS: General Practice
DX: A08.4 Viral intestinal infection, unspecified (principal); F41.9 Anxiety disorder, unspecified; J45.909 Unspecified asthma, uncomplicated; I10 Essential (primary) hypertension
CPT/HCPCS: J2405

== ENCOUNTER → 2017-09-18 | Outpatient (CLI) | payer OTHER ==
[~2017-09-18] MED LIST changes: +IMODIUM A-D2 M3 PO; +WELLBUTRIN SR150 MG PO; +ZOFRAN4 MG PO
[2017-09-18 18:46] LABS: AMPHETAMINES/METAMPHETAMINES NEGATIVE ng/mL (<1000)
[2017-09-29 09:37] LABS: Opiates Negative (Cutoff=100)
== END ==
LOC: LAB 15:37
PROVIDERS: Emergency Medicine
DX: Z79.899 Other long term (current) drug therapy (principal)